=== PATIENT | female | born 1955 | race Caucasian/White ===

== ENCOUNTER 2023-12-29 14:10 | Emergency (ER) | payer BC, SELFPAY ==
[2023-12-29] VITALS (7 sets, daily range): BP systolic 122–138; BP diastolic 62–114; PULSE 68–88; RESP 13–22; TEMP 36.6; O2SAT 97–99; BMI 25.7
--- NOTE | 2023-12-29 14:40 | RAD_ITS ---
HISTORY: TRAUMA. TECHNIQUE: XR Wrist Min 3 Views. COMPARISON: None. FINDINGS: BONES : Comminuted intra-articular fracture distal radius with very mild ulnar and volar displacement. Mild osteopenia. JOINTS: No dislocation. Degenerative change. SOFT TISSUES: Surrounding soft tissue swelling. RAD/Wrist min 3 Views IMPRESSION: Comminuted intra-articular fracture of the right distal radius. Electronically Signed: Antonina Drake MD at 14:53 EDT ,
--- NOTE | 2023-12-29 14:42 | CT_ITS ---
HISTORY: TRAUMA. TECHNIQUE: Multiple axial images were obtained of the head without intravenous contrast. A radiation dose optimization technique was used for this scan. 224 images. COMPARISON: None. FINDINGS: BRAIN PARENCHYMA: Calcification and old lacunar infarct in the left basal ganglia. Mild chronic small vessel ischemic gliosis. No acute intra-axial hemorrhage. CSF SPACES: Mild generalized volume loss. No midline shift or other significant mass effect. No acute extra-axial hemorrhage. OTHER: Intact calvarium. No significant air fluid levels in the paranasal sinuses or mastoid air cells. Unremarkable orbits. CT/Brain/Head without Contrast IMPRESSION: No acute intracranial process identified. Electronically Signed: Antonina Drake MD at 15:32 EDT ,
--- NOTE | 2023-12-29 14:42 | CT_ITS ---
HISTORY: TRAUMA. TECHNIQUE: Helically acquired images of the facial bones were obtained without contrast. A radiation dose optimization technique was used for this scan. 453 images. COMPARISON: None. FINDINGS: OSSEOUS STRUCTURES: No acute fracture or dislocation identified. SOFT TISSUES: No discrete fluid collections. PARANASAL SINUSES: Small right maxillary sinus mucous retention cyst. MASTOID AIR CELLS: Clear. ORBITAL CONTENTS: Both globes, extraocular muscles and retrobulbar fat appear unremarkable. CT/Sinus/Facial Bone IMPRESSION: No acute facial fracture identified. Electronically Signed: Antonina Drake MD at 15:35 EDT ,
--- NOTE | 2023-12-29 15:02 | ED.VIS.FALL ---
HPI HPI - Fall History of Present Illness Chief Complaint: Fall Informant: patient and family Occured/Mechanism Occurred: Today Mechanism/Context: Yes same level fall and Yes trip Usually ambulates: Without assistance Pain/Injury Pain Location: head, face and upper extremity Quality of Pain: Sharp Current Severity: Moderate Maximum Severity: Moderate Associated Symptoms Associated Symptoms: Negative for Parasthesias, Weakness, Loss of function, Inability to ambulate, Loss of consciousness or Amnesia Narrative Narrative: Six 8-year-old female healthy. Prior bilateral hip replacements. There are outside due to the weather and change of seasons. She tripped over a curb fell injuring her right wrist and the right side of her face. Brief loss of consciousness. Acting concussed repeatedly asked the same questions to her family. She is not on any blood thinners. Prior similar symptoms: No Recent Illness/Hospitalization: No PFSH PFSH Medical History no medical history no medical history Allergy/AdvReac Type Severity Reaction Status Date / Time No Known Allergies Allergy Verified 12/29/23 14:11 Surgical History Hip joint replacement status Social History Smoking Status: Never smoker ROS ROS ED ROS Narrative Denies recent illness. Constitutional Constitutional ED: Denies chills or fever(s) Eyes Eyes: Denies blurry vision ENT ENT ED: Denies ear pain Cardiovascular Cardiovascular: Denies chest pain or palpitations Respiratory/Chest Respiratory/Chest: Denies cough or dyspnea Gastrointestinal Gastrointestinal: Denies abdominal pain Genitourinary Genitourinary ED: Denies dysuria or hematuria Musculoskeletal Musculoskeletal: Denies arthralgias or back pain Integumentary Denies abscess or Abrasions Neurologic Neurologic: Denies headache(s) Psychiatric Psychiatric: Denies anxiety Endocrine Endocrinology: Denies polydipsia Hematologic/Lymphatic Hematologic/Lymphatic: Denies easy bleeding Allergic/Immunologic Allergic/Immunologic ED: Denies mouth swelling EXAM Physical Exam Narrative Exam Narrative: 68-year-old female sitting upright in bed. Ice pack on her right wrist. To friends or family in the room. Vital signs are stable afebrile. HEENT exam pupils round reactive light. She has abrasion and contusion right side of her face and forehead. Dentition intact. Scalp nontender no hematoma. Laceration. C-spine and trachea nontender. Lungs clear to auscultation bilaterally. Chest wall ribs nontender. Heart regular rate and rhythm no murmur rate about 70. Abdomen soft nontender. Pelvic girdle intact. Back nontender. Moving all 4 extremities. Swelling and tenderness to her right distal radius. Hand neurovascularly intact. Nontender very right elbow and upper arm nontender. Left upper extremity and both lower extremities are nontender. Normal strength. Normal range of motion. Neurologically she is awake and alert. Answer questions following commands. Const Vital Signs: 12/29/23 14:11 12/29/23 14:23 12/29/23 15:22 Temperature 97.9 F Temperature Source Oral Pulse Rate 72 70 Respiratory Rate 16 22 H Respiratory Effort Normal Respiratory Depth Normal Respiratory Pattern Normal Blood Pressure 131/76 H 122/62 H Blood Pressure Mean 94 82 Pulse Ox 99 99 Oxygen Delivery Method Room Air Room Air 12/29/23 15:22 12/29/23 15:30 12/29/23 15:45 Temperature Temperature Source Pulse Rate 84 82 76 Respiratory Rate 15 16 16 Respiratory Effort Respiratory Depth Respiratory Pattern Blood Pressure 124/81 H 138/79 H Blood Pressure Mean 92 93 Pulse Ox 98 98 97 Oxygen Delivery Method 12/29/23 16:00 12/29/23 16:15 Temperature Temperature Source Pulse Rate 88 73 Respiratory Rate 14 13 Respiratory Effort Respiratory Depth Respiratory Pattern Blood Pressure 135/78 H 129/114 H Blood Pressure Mean 93 121 Pulse Ox 97 Oxygen Delivery Method Positive well nourished and well developed; Negative for obese, cachectic, contractures or unkempt General Appearance ED: well developed and NAD; Negative for unkempt, cachectic or contractures Nutritional Appearance: Negative for cachectic or obese HEENT Reports normocephalic HEENT Narrative: Right facial contusion. trauma and contusion; Negative for atraumatic Eyes PERRL and EOMs intact bilaterally General Eye ED: Negative for pale conjunctiva or scleral icterus Neck full ROM, no lymphadenopathy and supple General: Negative for tenderness Chest Wall inspection of chest normal and palpation of chest normal Resp normal respiratory effort, no retractions and clear to auscultation bilaterally Auscultation: Negative for rales, rhonchi, wheezes or diminished lung sounds Cardio regular rate, regular rhythm, S1 normal heart sound, S2 normal heart sound and no murmurs Rate: Negative for bradycardia or tachycardic Rhythm: Negative for abnormal rhythm Bruits: Negative for other GI non-tender, non-distended and no masses Inspection: Negative for abdominal distention Palpation: soft; Negative for guarding or rebound tenderness present Back/Spine no CVA tenderness General Back: Negative for CVA tenderness Cervical Spine: Negative for cervical spine tenderness Thoracic Spine / Upper Back: Negative for ROM limited Lumbar Spine / Lower Back: Negative for lumbar spinal tenderness Neuro oriented x3, CN's II-XII intact bilaterally, moves all extremities and no focal motor deficits Pete Coma Scale: document GCS findings Spontaneous Obeys Commands Oriented 15 Sensorium / Orientation: alert, oriented to person, oriented to place and oriented to time; Negative for orientation impaired, confused, lethargic or stuporous Motor Exam: strength 5/5 throughout Psych mental status grossly normal and thought process normal Appearance: Negative for unkempt Attitude: No agitated Mood & Affect: Negative for depressed or tearful Skin Skin Narrative: Right facial contusion Lesions: no lesions Rashes: no rashes MDM MDM MDM Narrative Medical decision making narrative: 68-year-old tripped and fell over a parking block. Head injury with LOC. Right wrist fracture x-rays being obtained CT of her head and face being obtained. Patient normal on repeat exam at 4:40 PM. Awake alert. We went over CAT scan and x-ray results. She was placed in a well-padded short arm AP Ortho-Glass splint. Sling. Should be discharged home. Tylenol for pain. Follow-up with orthopedics. History & Record Review Discussion w/independent historian: Patient Radiography Diagnostic Testing: Clinical Impression(s) from Imaging Studies Wrist X-Ray 12/29/23 14:40 IMPRESSION: Comminuted intra-articular fracture of the right distal radius. Electronically Signed: Antonina Drake MD at 14:53 EDT , Brain CT 12/29/23 14:42 IMPRESSION: No acute intracranial process identified. Electronically Signed: Antonina Drake MD at 15:32 EDT , Facial/Sinus 12/29/23 14:42 IMPRESSION: No acute facial fracture identified. Electronically Signed: Antonina Drake MD at 15:35 EDT , Right wrist x-ray 3 views interpreted by myself and radiologist shows a comminuted distal radius fracture into the joint. Procedures Upper Extremity Splints Upper Extremity Splint: Orthoglass and Sling Splint Fabrication: Fabricated Location: Right (Well-padded AP and lateral short arm fabricated Ortho-Glass splint.) Discharge Plan Triage Chief Complaint: Fall ED Provider: Prasanna Rubio Dx/Rx/DC Orders Clinical Impression: Fall, Head injury, Wrist fracture, right, Concussion Instructions: ED Concussion, ED Fracture, Wrist, General Primary Care Provider: GIANA HENNING Referrals: Dwain Arita MD [Med Staff - Active Staff] - As soon as possible [facility],Out of [Non-Staff] - Activity Restrictions/Additional Instructions: Tylenol for pain. Ice and elevate your wrist to decrease pain and swelling. Keep the splint dry and clean. Keep an eye on. Call and follow-up with these an orthopedic doctor in your area or the 1 I referred you to for further evaluation to decide if they can Cast it or need to do surgery. Get reevaluation if you start having severe headaches, vomiting or not acting right. You will have some headaches due to the concussion. Print Language: Macedonian Disposition Disposition: Home, Self Care
== END 2023-12-29 17:00 | disposition home or self-care (01) ==
PROVIDERS: Emergency Provider Emergency Medicine; Visit Provider Emergency Medicine
DX: S52.571A Other intraarticular fracture of lower end of right radius, initial encounter for closed fracture (principal); S06.0X0A Concussion without loss of consciousness, initial encounter; W18.30XA Fall on same level, unspecified, initial encounter; W10.1XXA Fall (on)(from) sidewalk curb, initial encounter; Z96.643 Presence of artificial hip joint, bilateral; S00.83XA Contusion of other part of head, initial encounter
CPT/HCPCS: 29125; 70450; 70486; 73110; 99283